=== PATIENT | female | born 1950 | race Caucasian/White ===

== ENCOUNTER → 2020-08-17 11:36 | Outpatient (CLI) | payer OTHER, SELFPAY ==
[2020-08-17 12:29] LABS: COVID19 -Nasal RAPID Negative (Negative)
== END ==
PROVIDERS: PCP Family Medicine; Visit Provider Specialist
DX: Z01.812 Encounter for preprocedural laboratory examination (principal); Z20.822 Contact with and (suspected) exposure to COVID-19
CPT/HCPCS: 87635

== ENCOUNTER 2020-08-17 11:51 | Day surgery (SDC) | payer OTHER, SELFPAY ==
[2020-08-13 13:04] VITALS: BMI 25.5
--- NOTE | 2020-08-17 | PATH_ITS ---
[facility] Accession Number: [id number] . 01 Material submitted: . endometrium - ENDOMETRIAL MASS WITH ENDOMETRIAL CURRETTINGS . 02 Diagnosis: Endometrial Mass with Endometrial Curettings: Endometrial endometrioid adenocarcinoma, favor FIGO 2. MRV 08/20/2020 1148 Local . 02 Comment: As part of routine software quality manager, Dr. Fierro also reviewed this case and agrees with the diagnosis. . Results discussed with Dr. Dubose on 08-20-20 at approximately 10:48 a.m. . 02 Electronically signed: . Joie Louei MD, Pathologist NPI- [id number] . 01 Gross description: . ENDOMETRIAL MASS WITH ENDOMETRIAL CURRETTINGS: Received in formalin are minute fragments of mucoid and hemorrhagic material measuring 2.5 x 2.5 x 0.5 cm in aggregate. Submitted in toto in 2 cassettes. /MANISHA 08/18/20201942 Local . 02 Pathologist provided ICD-10: N95.0, N93.9, C54.1 . 02 CPT . 279843 Performed at: 01 [facility] Cyt[facility] [address], [place], [place] [id number] MD Juan Castro MD Phone: [phone] Performed at: 02 [facility] [address] [place], [place] [id number] MD Taisha Ruiz MD Phone: [phone]
[2020-08-17 12:26] VITALS: BP 142/82; PULSE 75; RESP 16; TEMP 36.8; O2SAT 100; BMI 25.5
[2020-08-17] MEDS: LACTATED RINGERS 1,000 ML 100 ML IV (12:56)
--- NOTE | 2020-08-17 13:18 | PM.PREOP ---
Pre-operative Note COVID-19 COVID-19 status: Negative Result date/Date tested (Pos, Neg/Pending): 08/17/20 Interval Note History & Physical reviewed/Exam performed by Physician: Yes Changes to H&P: No
--- NOTE | 2020-08-17 13:49 | SUR.OPER ---
Lithotomy on padded OR bed, head on pillow, arms secured on padded arm boards at <90 degrees abduction. Legs secured in padded yellow fins stirrups.
--- NOTE | 2020-08-17 14:08 | PM.OP.1 ---
Operative Date/Time/Diagnoses Date of procedure: 08/17/20 Time of procedure: 14:08 Pre-op diagnosis: Postmenopausal bleeding with mass in the endometrium on ultrasound Post-op diagnosis: same Procedure & Clinicians Procedure: Hysteroscopy with resection of mass Same procedure as scheduled: Yes Indications: Postmenopausal bleeding with mass on ultrasound Surgeon: Darleen Dubose Click Yes if Unassisted: Yes Anesthesia Type: General Operative Notes Findings: Normal exam under anesthesia, mass arising off the posterior aspect of the uterus, thin endometrium otherwise Closure Type: not applicable Specimen(s): other (Endometrial mass and endometrial curettage) Estimated Blood Loss (mL): 5 Blood products transfused: none Procedure in detail: The patient was brought to the operating room where she underwent general anesthesia. She was placed in low stirrups She was prepped and draped in usual sterile fashion with pulsatile stockings in place and functional, warming in place, no antibiotics were indicated. Her bladder was drained with in and out catheter. A single-tooth tenaculum was placed on the anterior lip of the cervix and the uterus dilated to #8 Hegar dilator. The hysteroscope was placed into the uterus with a sorbitol solution running and under constant suction. The resecting loop set at 80 W of cutting was used to resect the endometrial mass down to the level of the endometrium. A endometrial curettage was performed. The mass and the endometrial curettage was sent to pathology. The patient went to recovery room in good condition counts of instruments and sponges were correct. Estimated blood loss less than 5 mL. The sorbitol solution I=O approximately 5000 mL. Complications: none Post-operative Condition: stable Disposition: same day surgery Plan for aftercare: Home when awake and stable. Treatment and follow-up based on biopsy results.
[2020-08-17 14:12] VITALS: BP 120/74; PULSE 73; RESP 9; TEMP 37.1; O2SAT 89
[2020-08-17 14:17] VITALS: BP 138/69; PULSE 70; RESP 9; O2SAT 98
[2020-08-17 14:22] VITALS: BP 140/79; PULSE 64; RESP 16; O2SAT 99
[2020-08-17 14:27] VITALS: BP 144/74; PULSE 58; RESP 10; O2SAT 98
[2020-08-17 14:33] VITALS: BP 149/74; PULSE 57; RESP 6; O2SAT 98
[2020-08-17] MEDS: OXYCODONE/ACETAMINOPHEN 5/325 TABLET 1 TAB PO (14:41)
== END 2020-08-17 14:53 | disposition home or self-care (01) ==
PROVIDERS: PCP Family Medicine; Referring Provider Specialist; Visit Provider Specialist
PROC: 0U5B8ZZ Destruction of Endometrium, Via Natural or Artificial Opening Endoscopic (ICD-10-PCS; CPT 58563; principal; 2020-08-17 13:30)
DX: C54.1 Malignant neoplasm of endometrium (principal); Z20.822 Contact with and (suspected) exposure to COVID-19; Z01.812 Encounter for preprocedural laboratory examination
CPT/HCPCS: 58558; 87635; J2250; J2704; J3010